=== PATIENT | female | born 1990 | race Caucasian/White ===

== ENCOUNTER 2017-03-15 10:20 | Emergency (ER) | payer OTHER ==
[2017-03-15 11:29] VITALS: BMI 28.3
[2017-03-15 15:54] VITALS: BP 105/59; PULSE 80; RESP 16; TEMP 98.4; O2SAT 100
--- NOTE | 2017-03-15 16:50 | OBHP ---
Datetime: 03/15/2017 11:25 IP Adm Impression: , intrauterine IP Chief Complaint Other: chest tightness IP Admit Plan: Observation/Evaluation IP Admit Plan Other: D/c to ED Admit Comment, IP Provider: CC: "Chest tightness" HPI: 26 YO @ 21.5wks IUP (LMP 10/14/16) presents to [facility] for chest tightness. Pt states that s he was in normal health this morning when she woke up. She ate breakfast (pancakes), and then went to work at 8. Around 8:30, pt experienced chest tightness, "someone was squeezing my chest and I was no t able to take a full breath." Subsequently, pt started experienceing nausea, dizziness and blurry vi aj. This ep lasted around 1 hr and resolved. This is the first time pt experienced the symptoms alexsander cribed above. Pt states that there has been no complications in this thus far, bps ranging from 100's/70-80s. Denies abdominal discomfort or RUQ pain, no eps of emesis. Endorses good FM, no LO F, no CTX and no VB. : Dr. Fontanez OhHx: NVD x 1, full term no complications. GyNHx: denies STIs and normal pap PMH: hx of asthma as a child SurgH: denies FH: denies SH: , denies ETOH, smoking and illicit drug use Meds: PNV Allergies: Penicillin PE VS: Stable- bps 100s/60s, HR 80s and O2 100% on RA GEN: NAD Eyes: EOMI Cardio: S1S2 no M/G/R, NT to palpation Resp: vesicular breathing b/l back: NT, no CVA tenderness b/l Abdomen: gravid, NT, BS+ Neuro: AAO x 3 Ext: no edema noted, NT FM: 150, moderate variability Assessment/Plan: 26 YO @ 21.5wks IUP is evaluated for chest tightness. Pt is in NAD at this time, monito r is reactive, and VS stable. -vital signs - monitor -observe and reassess Pt seen and examined with attending, Dr. Choudhury. Pt is in NAD at this time. VS remain stable, wi th BPs 100s/80s, HR 80s and O2 100 on RA. monitor is reactive. Will send pt to ED to be further evaluated for chest tightness. Ruma Mccann, PGY I OB hot overly attending addendum: Patient seen and examined by me. Agree with above assessment and plan. She denies any complaints a t present. She denies current history of asthma, headaches, fatigue,petit mal seizures, visual distur bance, loss of consciousness or syncope. Patient to ED for further evaluation of her prior episode of chest pain associated with shortness of breath and headache and blurred vision. Pelvic Type - PN: Not Done Extremities - PN: Normal Abdomen - PN: Normal Back - PN: Normal Breast - PN: Normal Lungs - PN: Normal Heart - PN: Normal Thyroid - PN: Not Done Neurologic - PN: Normal HEENT - PN: Normal General - PN: Normal FHR - Baseline A Provider: 150 EGA AdmitDate IP: 21.4 Vital Signs Provider: Reviewed; Within Normal Limits IP Chief Complaint: Other NICHD Variability Prov Fetus A: Moderate 6-25bpm NICHD Accel Fetus A IP Provider: [id number] FHR Category Provider Fetus A: Category I NICHD Decel Fetus A IP Provider: None Genitourinary Exam: Not Done (Annotations: Data stored by CPN on behalf of user) DTRs - PN: Not Done
== END 2017-03-15 11:23 | disposition home or self-care (01) ==
LOC: H.EROB2 10:20
DX: O26.92 Pregnancy related conditions, unspecified, second trimester (principal); R07.9 Chest pain, unspecified; R06.02 Shortness of breath; Z3A.21 21 weeks gestation of pregnancy

== ENCOUNTER 2017-05-19 10:59 | Emergency (ER) | payer OTHER ==
[2017-05-19 11:09] VITALS: BMI 30.7
--- NOTE | 2017-05-19 12:02 | OBHP ---
Datetime: 05/19/2017 11:00 IP Adm Impression: , intrauterine IP Admit Plan: Observation/Evaluation Admit Comment, IP Provider: 27 yo at ega 30.6 presents for maternal discomfort. She shares of s everal week history of chest (midsternal) pressure. Denies pain. Assocated with transient SOB, dizzin ess and nausea. spontaneously resolves. She reports going to the hospital with negative EKG/CT-spiral . Personal history of asthma, no exacerbation since 3 years of age. No personal history of anxiety pnc: Dr. Fontanez obhx: at 2010 41 wks uncomplicated gyne: denies hx of sti; pap neg medhx: none famhx: none surg: none soc: denies smoking, alcohol, illict drugs rx: pnv NKDA aaox3 cardiac: s1s no murmurs lungs: slight inspiratory wheeze RU lobe. O2 sat 100% abdo: gravid; nontender 27 yo IUP ega 30.6 -fetus monitored and stable -Pt with stable vitals -No current chest discomfort -dc to ER for further workup case dw Dr. Chidi Wood MD PGY1 Patient was seen with the resident I agree with the notes. Patient presents complaining of shortne ss of breath and sternal discomfort. Patient reports good movement no vaginal bleeding or uteri ne contractions. Patient calls similar episode where she was evaluated in the hospital had spiral CT EKG performed was discharged. Patient cleared obstetrically the patient will be sent sent to the [facility] room for further evaluation. Patient and partner agreed to plan of care Pelvic Type - PN: Adequate Extremities - PN: Normal Abdomen - PN: Normal Back - PN: Normal Breast - PN: Not Done Lungs - PN: Normal Heart - PN: Normal Thyroid - PN: Not Done Neurologic - PN: Normal HEENT - PN: Normal General - PN: Normal FHR - Baseline A Provider: 140 EGA AdmitDate IP: 83.0 Vital Signs Provider: Reviewed; Within Normal Limits IP Chief Complaint: Maternal discomfort NICHD Variability Prov Fetus A: Moderate 6-25bpm NICHD Accel Fetus A IP Provider: [id number] FHR Category Provider Fetus A: Category I NICHD Decel Fetus A IP Provider: None Genitourinary Exam: Normal DTRs - PN: Not Done
[2017-05-19 12:45] VITALS: TEMP 98.6
--- NOTE | 2017-05-19 16:02 | US ---
PROCEDURE: Bilateral lower extremity venous duplex Doppler. HISTORY: SOB COMPARISON: None available. TECHNIQUE: Bilateral common femoral, superficial femoral, popliteal and posterior tibial veins were evaluated. Flow was assessed with color Doppler, compressibility, assessment of phasic flow and augmentation response. FINDINGS: COMMON FEMORAL VEIN: Right CFV: Unremarkable. Left CFV: Unremarkable. SUPERFICIAL FEMORAL VEIN: Right SFV: Unremarkable. Left SFV: Unremarkable. POPLITEAL VEIN: Right Popliteal: Unremarkable. Left Popliteal: Unremarkable. POSTERIOR TIBIAL VEIN: Right PTV: Unremarkable. Left PTV: Unremarkable. OTHER FINDINGS: None. IMPRESSION: No evidence of deep venous thrombosis.
--- NOTE | 2017-05-19 16:23 | ED PDOC ---
HPI: General Adult Time Seen by Provider: 05/19/17 12:36 Chief Complaint (Nursing): Chest Pain History Per: Patient Additional Complaint(s): Today while waiting for her OBGYN to come into the clinic room she developed SOB. Pt. describes symptoms as if she was running for a while and developed dyspnea. Reports no chest pain. States she had similar symptoms but were more severe in 02/2017 and states she had a CT of chest w/ IV contrast done which showed no PE. Reports no leg swelling. Reports symptoms have resolved. Denies leg pain, hx of DVT or PE, palpitations, hemoptysis, fever. Past Medical History Reviewed: Historical Data, Nursing Documentation, Vital Signs Vital Signs: Last Vital Signs Temp 98.6 F 05/19/17 16:33 Pulse 75 05/19/17 16:33 Resp 17 05/19/17 16:33 BP 110/61 05/19/17 16:33 Pulse Ox 99 05/19/17 16:33 - Family History Family History: States: No Known Family Hx - Immunization History Hx Tetanus Toxoid Vaccination: No Hx Influenza Vaccination: No Hx Pneumococcal Vaccination: No - Allergies Allergies/Adverse Reactions: Allergies Allergy/AdvReac Type Severity Reaction Status Date / Time Penicillins Allergy RASH Verified 03/15/17 11:03 Review of Systems ROS Statement: Except As Marked, All Systems Reviewed And Found Negative Respiratory: Positive for: Shortness of Breath Physical Exam - Physical Exam Appears: Positive for: Well, Non-toxic, No Acute Distress Skin: Positive for: Normal Color, Warm. Negative for: Rash Eye Exam: Positive for: Normal appearance Cardiovascular/Chest: Positive for: Regular Rate, Rhythm Respiratory: Positive for: Normal Breath Sounds. Negative for: Accessory Muscle Use, Respiratory Distress Gastrointestinal/Abdominal: Positive for: Normal Exam, Soft, Other (gravid). Negative for: Tenderness Extremity: Positive for: Normal ROM Neurologic/Psych: Positive for: Alert, Oriented - ECG ECG: Positive for: Interpreted By Me ECG Rhythm: Positive for: Sinus Rhythm. Negative for: ST/T Changes Rate: 93 O2 Sat by Pulse Oximetry: 100 - Progress ED Course And Treament: Case d/w Dr. Sifuentes who agrees with care. Duplex b/l lower extremity vein: no DVT Disposition - Clinical Impression Clinical Impression: Dyspnea - Patient ED Disposition Is Patient to be Admitted: No - Disposition Disposition: Routine/Home Disposition Time: 16:24 Condition: STABLE Instructions: Dyspnea (ED) Forms: [facility] (Micronesian)
[2017-05-19 16:37] VITALS: BP 110/61; RESP 17
[2017-05-19 20:38] VITALS: PULSE 93; O2SAT 100
== END 2017-05-19 16:37 | disposition home or self-care (01) ==
LOC: H.EROB2 10:59 → H.ER 10:59
DX: O26.93 Pregnancy related conditions, unspecified, third trimester (principal); R07.9 Chest pain, unspecified; R06.02 Shortness of breath; Z3A.30 30 weeks gestation of pregnancy; J45.909 Unspecified asthma, uncomplicated

== ENCOUNTER 2017-06-14 15:01 | Emergency (ER) | payer OTHER ==
[2017-06-14 16:08] VITALS: BMI 30.2
--- NOTE | 2017-06-14 18:17 | US ---
PROCEDURE: Bilateral lower extremity venous duplex Doppler. HISTORY: R calf pain, COMPARISON: None available. TECHNIQUE: Bilateral common femoral, superficial femoral, popliteal and posterior tibial veins were evaluated. Flow was assessed with color Doppler, compressibility, assessment of phasic flow and augmentation response. FINDINGS: COMMON FEMORAL VEIN: Right CFV: Unremarkable. Left CFV: Unremarkable. SUPERFICIAL FEMORAL VEIN: Right SFV: Unremarkable. Left SFV: Unremarkable. POPLITEAL VEIN: Right Popliteal: Unremarkable. Left Popliteal: Unremarkable. POSTERIOR TIBIAL VEIN: Right PTV: Unremarkable. Left PTV: Unremarkable. OTHER FINDINGS: None. IMPRESSION: No evidence of deep venous thrombosis.
[2017-06-15 00:59] VITALS: BP 104/63; PULSE 116; O2SAT 99
== END 2017-06-14 20:00 | disposition home or self-care (01) ==
LOC: H.EROB2 15:01
DX: O26.93 Pregnancy related conditions, unspecified, third trimester (principal); M79.661 Pain in right lower leg; Z3A.34 34 weeks gestation of pregnancy